=== PATIENT | female | born 1960 | race Caucasian/White ===

== ENCOUNTER → 2019-04-15 | Outpatient (CLI) | payer OTHER ==
[~2019-04-15] MED LIST: ACET1TAB12 PO; CYAN25006 PO; DIPH25CA85 PO; DOCU-116 PO; FISH OIL PO; FLUO20CA30 PO; FOLI1TAB15 PO; IBUP-1673 PO; IBUPROFEN PO; IRON18TA PO; LEVO25TA54 PO; LEVO50TA11 PO; LORA10CA PO; PEPCID PO; VITAMIN C PO; VITAMIN D PO
== END | disposition home or self-care (01) ==
LOC: RAH 14:28
PROVIDERS: ATTEND Internal Medicine Cardiovascular Disease
DX: Z13.6 Encounter for screening for cardiovascular disorders (principal)
CPT/HCPCS: 75571